=== PATIENT | male | born 2000 | race African-American/Black ===

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

== ENCOUNTER 2018-04-07 02:16 | Emergency (ER) | payer OTHER ==
--- NOTE | 2018-04-07 02:47 | ER Document Report ---
ED General - General Chief Complaint: Abdominal Injury Stated Complaint: ABDOMINAL PAIN Time Seen by Provider: 04/07/18 02:38 Notes: Patient is a pleasant 17-year-old male who presents with complaint of abdominal pain. Said dull pain started about 2 days ago. He says it went away and then came back. He says it is somewhat intermittent but has become more constant throughout the night tonight. No fevers. No vomiting. No diarrhea. Last bowel movement was yesterday and was normal. He says the pain is somewhat diffuse. He denies any blood in stool. He denies any history of abdominal surgeries. The only medications he takes are for mental health. He has no other chronic medical problems. TRAVEL OUTSIDE OF THE [place] IN LAST 30 DAYS: No - Related Data Allergies/Adverse Reactions: No Known Allergies Allergy (Verified 05/26/17 22:12) Past Medical History - Social History Smoking Status: Never Smoker Frequency of alcohol use: None Drug Abuse: None Family History: Reviewed & Not Pertinent Renal/ Medical History: Denies: Hx Peritoneal Dialysis Psychiatric Medical History: Reports: Hx Attention Deficit Hyperactivity Disorder - Immunizations Immunizations up to date: Yes Hx Diphtheria, Pertussis, Tetanus Vaccination: Yes Review of Systems - Review of Systems Notes: My Normal Review Basic REVIEW OF SYSTEMS: CONSTITUTIONAL : Denies fever, chills, or sweats. Denies recent illness. EENT: Denies eye, ear, throat, or mouth pain or symptoms. Denies nasal or sinus congestion. RESPIRATORY: Denies cough, cold, or chest congestion. Denies shortness of breath, difficulty breathing, or wheezing. GASTROINTESTINAL: Diffuse intermittent abdominal pain. Denies nausea, vomiting , or diarrhea. Denies constipation. Last BM: Sunday GENITOURINARY: Denies difficulty urinating, painful urination, burning, frequency, or blood in urine. MUSCULOSKELETAL: Denies neck or back pain or joint pain or swelling. SKIN: Denies rash or skin lesions. NEUROLOGICAL: Denies altered mental status or loss of consciousness. Denies headache. Denies weakness or paralysis or loss of use of either side. Denies problems with gait or speech. Denies sensory or motor loss. ALL OTHER SYSTEMS REVIEWED AND NEGATIVE. Physical Exam - Vital signs Vitals: Temp Pulse Resp BP Pulse Ox 97.9 F 66 18 132/76 H 100 04/07/18 02:27 04/07/18 02:27 04/07/18 02:27 04/07/18 02:27 04/07/18 02:27 - Notes Notes: General Appearance: Well nourished, alert, cooperative, no acute distress, mild obvious discomfort. Vitals: reviewed, See vital signs table. Head: no swelling or tenderness to the head Eyes: PERRL, EOMI, Conjuctiva clear Mouth: No decreasd moisture Lungs: No wheezing, No rales, No rhonci, No accessory muscle use, good air exchange bilaterally. Heart: Normal rate, Regular rythm, No murmur, no rub Abdomen: Normal BS, soft, No rigidity, patient has been palpation throughout entire abdomen but is worse over the right side. Seems worse between the right upper and lower quadrant. Extremities: strength 5/5 in all extremities, good pulses in all extremities, no swelling or tenderness in the extremities, no edema. Skin: warm, dry, appropriate color, no rash Neuro: speech clear, oriented x 3, normal affect, responds appropriately to questions. Course - Re-evaluation Re-evalutation: 04/07/18 06:37 Patient is a leukocytosis. He has had pain for over 2 days now. I do not suspect appendicitis. On repeat abdominal exam he does not have a significant pain in the right lower quadrant. He has more just some mild soreness of his abdomen. He complains of his abdominal abdomen at times been bloated and gassy feeling. I do think this most likely is related constipation. He does have a lot of stool on his abdominal x-ray. I will place him on MiraLAX. I informed him and his family that even though I think it is unlikely appendicitis at this time but they still may have a low threshold to return to ER immediately if he has focal right lower quadrant tenderness, vomiting, fevers, or feels unwell. I informed him that he should still return to the ER 24 hours for recheck if he still having the same amount of pain after 24 hours. Patient and family agree with plan and patient will be discharged home. Dictation of this chart was performed using voice recognition software; therefore, there may be some unintended grammatical errors. - Vital Signs Vital signs: Temp Pulse Resp BP Pulse Ox 98.0 F 68 18 128/72 H 100 04/07/18 04:35 04/07/18 04:35 04/07/18 04:35 04/07/18 04:35 04/07/18 04:35 - Laboratory Result Diagrams: 04/07/18 03:00 04/07/18 03:00 Laboratory results interpreted by me: 04/07/18 04/07/18 03:00 03:00 Lymphocytes % 45.2 H Sodium 145.5 H Potassium 5.1 H Discharge - Discharge Clinical Impression: Abdominal pain Qualifiers: Abdominal location: generalized Qualified Code(s): R10.84 - Generalized abdominal pain Condition: Good Disposition: HOME, SELF-CARE Additional Instructions: The exact cause of your abdominal pain is not 100% clear. I suspect your pain could be related to constipation so we have given you Miralax. Please take this as prescribed. If you are still having significant pain 24 hours later you should return to the ER for reevaluation. Please return to the ER immediately if you have fevers, vomiting, worsening abdominal pain, or pain focal over the right lower portion of your abdomen. Prescriptions: Polyethylene Glycol 3350 [Miralax] 1 cap PO DAILY #527 powder
[2018-04-07 03:21] LABS: ABSOLUTE EOSINOPHILS # (AUTO) 0.2 10^3/uL (0.0-0.6); ABSOLUTE LYMPHOCYTES (AUTO) 2.7 10^3/uL (0.5-4.7); ABSOLUTE MONOCYTES (AUTO) 0.5 10^3/uL (0.1-1.4); ABSOLUTE NEUT (AUTO) 2.5 10^3/uL (1.7-8.2); BASOPHILS % (AUTO) 0.6 % (0-2); EOSINOPHILS % (AUTO) 2.9 % (0-6); HEMATOCRIT 41.9 % (37.9-51.0); HEMOGLOBIN 14.3 g/dL (13.5-17.0); LYMPHOCYTES % (AUTO) 45.2 % (13-45); MEAN CORPUSCULAR HEMOGLOBIN 28.1 pg (27.0-33.4); MEAN CORPUSCULAR HGB CONC 34.2 g/dL (32.0-36.0); MEAN CORPUSCULAR VOLUME 82 fl (80-97); MONOCYTES % (AUTO) 8.7 % (3-13); PLATELET COUNT 230 10^3/uL (150-450); RED CELL DISTRIBUTION WIDTH 13.4 % (11.5-14.0); SEGMENTED NEUTROPHILS % (AUTO) 42.6 % (42-78); TOTAL CELLS COUNTED % (AUTO) 100 %; WHITE BLOOD COUNT 5.9 10^3/uL (4.0-10.5)
[2018-04-07 03:37] LABS: APPEARANCE,URINE CLEAR; BILIRUBIN,URINE NEGATIVE (NEGATIVE); COLOR,URINE YELLOW; GLUCOSE, URINE NEGATIVE (NEGATIVE); KETONES,URINE NEGATIVE (NEGATIVE); LEUKOCYTE ESTERASE,URINE NEGATIVE (NEGATIVE); NITRITE,URINE NEGATIVE (NEGATIVE); PROTEIN,URINE NEGATIVE (NEGATIVE); URINE SPECIFIC GRAVITY 1.023; UROBILINOGEN,URINE NEGATIVE mg/dL (<2.0)
[2018-04-07 03:39] LABS: ALANINE AMINOTRANSFERASE 27 U/L (10-40); ALBUMIN 4.7 g/dL (3.7-5.6); ALKALINE PHOSPHATASE 82 U/L (65-260); ANION GAP 13 (5-19); ASPARTATE AMINO TRANSFERASE 27 U/L (10-45); BILIRUBIN,DIRECT 0.3 mg/dL (0.0-0.4); BILIRUBIN,TOTAL 0.4 mg/dL (0.2-1.3); BLOOD UREA NITROGEN 16 mg/dL (7-20); CALCIUM 9.9 mg/dL (8.4-10.2); CARBON DIOXIDE 29 mmol/L (22-30); CHLORIDE 104 mmol/L (98-107); GLUCOSE 89 mg/dL (75-110); LIPASE 75.5 U/L (23-300); POTASSIUM 5.1 mmol/L (3.6-5.0); SODIUM 145.5 mmol/L (137-145); TOTAL PROTEIN 7.6 g/dL (6.3-8.2)
--- NOTE | 2018-04-07 04:11 | RADIOLOGY REPORT (SQ) ---
EXAM DESCRIPTION: Abdomen radiographs April 07, 2018 CLINICAL HISTORY: 17 years, Male, abdominal pain COMPARISON: None. TECHNIQUE: Supine and upright views of the abdomen FINDINGS: The bowel gas pattern is normal. There is no evidence of free air. There are no abnormal masses or calcifications. Limited evaluation of the liver, spleen, and kidneys demonstrate no gross abnormalities. The osseous structures are age appropriate. IMPRESSION: No acute intra-abdominal process.
[2018-04-07] MEDS ORDERED: POLYETHYLENE GLYCOL 3350 POWDER 17 GM/1 PACKET PO ONE (04:22)
[2018-04-07 04:35] VITALS: BP 128/72
== END 2018-04-07 04:35 | disposition home or self-care (01) ==
LOC: ER 02:16
DX: R10.84 Generalized abdominal pain (principal)
CPT/HCPCS: 99284; 36415; 83690; 85025; 80053; 81001; 74019; J3490

== ENCOUNTER 2018-08-13 06:39 | Emergency (ER) | payer OTHER ==
--- NOTE | 2018-08-13 07:48 | ER Document Report ---
HPI - HPI Pain Level: 1 Notes: Patient is a 17-year-old male with no significant past medical history who presents to the ED complaining of right hand MCP joint pain of the third digit along with some pain to the left fifth digit of the hand at his PIP joint status post injury 2 days ago. Patient states that he fell on his hands. Patient states that he has had fractures in the past of both hands. Denies drug allergies. The pain does not radiate. He has noted some swelling to the right, but not to the left. Denies any headache, fever, head injury, neck pain , URI, sore throat, chest pain, palpitations, syncope, cough, shortness of breath, wheeze, dyspnea, abdominal pain, nausea/vomiting/diarrhea, urinary retention, dysuria, hematuria, numbness/tingling, muscle paralysis/weakness, or rash. - ROS Systems Reviewed and Negative: Yes All other systems reviewed and negative Past Medical History - Social History Smoking Status: Current Every Day Smoker Drug Abuse: None Family History: Reviewed & Not Pertinent Patient has suicidal ideation: No Patient has homicidal ideation: No Renal/ Medical History: Denies: Hx Peritoneal Dialysis Psychiatric Medical History: Reports: Hx Attention Deficit Hyperactivity Disorder - Immunizations Immunizations up to date: Yes Hx Diphtheria, Pertussis, Tetanus Vaccination: Yes Vertical Provider Document - CONSTITUTIONAL Agree With Documented VS: Yes Notes: PHYSICAL EXAMINATION: GENERAL: Well-appearing, well-nourished and in no acute distress. LUNGS: Breath sounds clear to auscultation bilaterally and equal. No wheezes rales or rhonchi. HEART: Regular rate and rhythm without murmurs, rubs, gallops. Musculoskeletal: Hands b/l: FROM to passive/active. Strength 5+/5. N/V intact distal. + mild tenderness to the PIP left 5th digit w/o deformity, swelling, ecchymosis, or erythema. + tenderness to the rt 3rd MCP joint with noted mild swelling/abrasion. Extremities: No cyanosis, clubbing, or edema b/l. Peripheral pulses 2+. Capillary refill less than 3 seconds. NEUROLOGICAL: Normal speech, normal gait. Normal sensory, motor exams PSYCH: Normal mood, normal affect. SKIN: see above. - INFECTION CONTROL TRAVEL OUTSIDE OF THE [place] IN LAST 30 DAYS: No Course - Re-evaluation Re-evalutation: 08/13/18 08:37 Patient is an afebrile, well-hydrated, 17-year-old male who presents to the ED with left 5th digit and rt MCP 3rd digit hand pain, suspect benign. Vitals are acceptable without any significant tachycardia, tachypnea, or hypoxia. PE is otherwise unremarkable for any neurovascular compromise, obvious tendon/ ligament rupture, obvious fracture/dislocation, septic joint. X-ray's unremarkable for any acute pathology. Patient declined any Tylenol or ice. Patient is nontoxic-appearing. No other labs or imaging warranted at this time based on H&P. Conservative measures otherwise for symptoms. Recheck with your PCM in 3-5 days. Consider consult orthopedics. Return to the ED with any worsening/concerning symptoms otherwise as reviewed in discharge. Patient is in agreement. - Vital Signs Vital signs: Temp Pulse Resp BP Pulse Ox 97.5 F 84 20 138/66 H 98 08/13/18 06:43 08/13/18 06:43 08/13/18 06:43 08/13/18 06:43 08/13/18 06:43 Discharge - Discharge Clinical Impression: Bilateral hand pain Condition: Stable Disposition: HOME, SELF-CARE Additional Instructions: Rest, Ice, Compression, Elevation Tylenol/ibuprofen as needed Light stretches daily Strength exercises as able Moist heat and massage may help F/u with your PCP in 3-5 days for a recheck Consider consult(s) with Orthopedics/physical therapy for ongoing/worsening symptoms Return to the ED with any worsening symptoms and/or development of fever, headache, chest pain, palpitations, syncope, shortness of breath, trouble breathing, abdominal pain, n/v/d, muscle weakness/paralysis, numbness/tingling, swelling, redness, or other worsening symptoms that are concerning to you. Forms: Elevated Blood Pressure, Smoking Cessation Education, Return to Work Referrals: [facility] ([place] [Provider Group] - Follow up as needed
--- NOTE | 2018-08-13 08:17 | RADIOLOGY REPORT (SQ) ---
EXAM DESCRIPTION: HAND BILATERAL 3 VIEWS COMPLETED DATE/TIME: 08/13/2018 7:29 am REASON FOR STUDY: injury fell on both hands, caught herself with bilateral hand pain COMPARISON: None. EXAM PARAMETERS: NUMBER OF VIEWS: Three views. TECHNIQUE: AP, lateral and oblique radiographic images acquired of the right and left hand. LIMITATIONS: None. FINDINGS: MINERALIZATION: Normal. BONES: No acute fracture or dislocation. No worrisome bone lesions. JOINTS: No effusions. SOFT TISSUES: No soft tissue swelling. No foreign body. OTHER: No other significant finding. IMPRESSION: NEGATIVE STUDY OF THE RIGHT AND LEFT HANDS. NO RADIOGRAPHIC EVIDENCE OF ACUTE INJURY. TECHNICAL DOCUMENTATION: JOB ID: [id number] [employer]- All Rights Reserved Reading location - IP/workstation name: [email or web address]
[2018-08-13 09:06] VITALS: BP 125/71
== END 2018-08-13 09:06 | disposition home or self-care (01) ==
LOC: ER 06:39
DX: S60.511A Abrasion of right hand, initial encounter (principal); M25.541 Pain in joints of right hand; M79.645 Pain in left finger(s); W19.XXXA Unspecified fall, initial encounter; F17.200 Nicotine dependence, unspecified, uncomplicated
CPT/HCPCS: 99283

== ENCOUNTER 2018-08-18 14:29 | Emergency (ER) | payer OTHER ==
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
[2018-08-18] MEDS ORDERED: DIPH/PERTUSS(ACELL)/TETANUS VAC/PF 0.5 ML SYR (>=10YO) IM ONE (17:51)
[2018-08-18 18:02] VITALS: BP 128/74
== END 2018-08-18 18:05 | disposition home or self-care (01) ==
LOC: ER 14:29
DX: S06.0X1A Concussion with loss of consciousness of 30 minutes or less, initial encounter (principal); S90.512A Abrasion, left ankle, initial encounter; S40.212A Abrasion of left shoulder, initial encounter; S40.211A Abrasion of right shoulder, initial encounter; V03.90XA Pedestrian on foot injured in collision with car, pick-up truck or van, unspecified whether traffic or nontraffic accident, initial encounter
CPT/HCPCS: 70450; 74022; 90471; 90715; 99284

== ENCOUNTER 2018-09-02 23:24 | Emergency (ER) | payer OTHER ==
[2018-09-03 01:33] LABS: ABSOLUTE EOSINOPHILS # (AUTO) 0.1 10^3/uL (0.0-0.6); ABSOLUTE LYMPHOCYTES (AUTO) 2.7 10^3/uL (0.5-4.7); ABSOLUTE MONOCYTES (AUTO) 0.4 10^3/uL (0.1-1.4); ABSOLUTE NEUT (AUTO) 3.1 10^3/uL (1.7-8.2); BASOPHILS % (AUTO) 0.7 % (0-2); EOSINOPHILS % (AUTO) 1.1 % (0-6); HEMATOCRIT 41.1 % (37.9-51.0); HEMOGLOBIN 13.8 g/dL (13.5-17.0); LYMPHOCYTES % (AUTO) 42.5 % (13-45); MEAN CORPUSCULAR HEMOGLOBIN 27.7 pg (27.0-33.4); MEAN CORPUSCULAR HGB CONC 33.5 g/dL (32.0-36.0); MEAN CORPUSCULAR VOLUME 83 fl (80-97); MONOCYTES % (AUTO) 6.8 % (3-13); PLATELET COUNT 188 10^3/uL (150-450); RED BLOOD COUNT 4.97 10^6/uL (4.35-5.55); RED CELL DISTRIBUTION WIDTH 12.9 % (11.5-14.0); SEGMENTED NEUTROPHILS % (AUTO) 48.9 % (42-78); TOTAL CELLS COUNTED % (AUTO) 100 %; WHITE BLOOD COUNT 6.3 10^3/uL (4.0-10.5)
--- NOTE | 2018-09-03 02:09 | ER Document Report ---
ED Psych Disorder / Suicide - General Chief Complaint: Psych Problem Stated Complaint: IVC EVALUATION Time Seen by Provider: 09/03/18 00:57 Mode of Arrival: Ambulatory Information source: Patient Notes: Patient is a 17-year-old male with history of schizophrenia, currently being treated although the patient is noncompliant, who presents involuntarily committed by his mother. Involuntary commitment paperwork states the patient began to voice suicidal ideation with a plan to either cut himself or take a lot of pills, he also was reportedly voicing homicidal ideation and having aggressive behavior toward other people. Patient denies all this and reports that his problems are due to issues with his mother. He currently denies suicidal/homicidal ideation, audiovisual hallucinations, or depressive thoughts. He also denies alcohol or drug use. TRAVEL OUTSIDE OF THE [place] IN LAST 30 DAYS: No - HPI Patient complains to provider of: Other - Feeling stressed out. No: Bizarre behavior, Hallucinating, Homicidal ideation, Homicidal plan, Homicidal attempt, Overdose, Suicidal ideation, Suicidal plan, Suicidal attempt Onset: Other - Two weeks Onset was: Cannot confirm Quality of pain: No pain Severity: None Pain Level: Denies Suicide Risk Factors: Depressed, Frightened friends/family, Male, Other mental health dx. 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 Denies: Hx Peritoneal Dialysis Malignancy Medical History: Reports None GI Medical History: Reports: None Musculoskeletal Medical History: Reports None Skin Medical History: Reports None Psychiatric Medical History: Reports: Hx Attention Deficit Hyperactivity Disorder, Hx Depression - anxiety, Hx Schizophrenia Traumatic Medical History: Reports: None Infectious Medical History: Reports: None Past Surgical History: Reports: None - Immunizations Immunizations up to date: Yes Hx Diphtheria, Pertussis, Tetanus Vaccination: Yes Review of Systems - Review of Systems -: Yes ROS unobtainable due to patient's medical condition Constitutional: No symptoms reported EENT: No symptoms reported Cardiovascular: No symptoms reported Respiratory: No symptoms reported Gastrointestinal: No symptoms reported Genitourinary: No symptoms reported Male Genitourinary: No symptoms reported Musculoskeletal: No symptoms reported Skin: No symptoms reported Hematologic/Lymphatic: No symptoms reported Neurological/Psychological: Depression, Anxiety. denies: Hallucinations, Homicidal ideation, Suicidal ideation -: Yes All other systems reviewed and negative Physical Exam - Vital signs Vitals: Temp Pulse Resp BP Pulse Ox 98.4 F 73 20 115/73 97 09/02/18 23:52 09/02/18 23:52 09/02/18 23:52 09/02/18 23:52 09/02/18 23:52 Interpretation: Normal - General General appearance: Appears well, Alert In distress: None - HEENT Head: Normocephalic, Atraumatic Eyes: Normal Pupils: PERRL - Respiratory Respiratory status: No respiratory distress Chest status: Nontender Breath sounds: Normal Chest palpation: Normal - Cardiovascular Rhythm: Regular Heart sounds: Normal auscultation Murmur: No - Abdominal Inspection: Normal Distension: No distension Bowel sounds: Normal Tenderness: Nontender Organomegaly: No organomegaly - Back Back: Normal, Nontender - Extremities General upper extremity: Normal inspection, Nontender, Normal color, Normal ROM , Normal temperature General lower extremity: Normal inspection, Nontender, Normal color, Normal ROM , Normal temperature, Normal weight bearing. No: Malvin's sign - Neurological Neuro grossly intact: Yes Cognition: Normal Orientation: AAOx4 Ronaldo Coma Scale Eye Opening: Spontaneous Ronaldo Coma Scale Verbal: Oriented Ronaldo Coma Scale Motor: Obeys Commands Ronaldo Coma Scale Total: 15 Speech: Normal Motor strength normal: LUE, RUE, LLE, RLE Sensory: Normal - Psychological Associated symptoms: Normal affect, Normal mood. No: Aggressive, Agitated, Auditory hallucinations, Visual hallucinations - Skin Skin Temperature: Warm Skin Moisture: Dry Skin Color: Normal Course - Re-evaluation Re-evalutation: 09/03/18 02:14 After medical clearance, will attempt to contact the patient's mother for collateral information before determining whether or not to uphold involuntary commitment. 09/03/18 03:39 Two attempts were made to contact the patient's mother at both the number provided by the patient and number according to the demographics; I was unable to speak with the mother to obtain collateral information. Plan will be to maintain involuntary commitment papers and await psychiatric consult tomorrow. - Vital Signs Vital signs: Temp Pulse Resp BP Pulse Ox 98.4 F 73 20 115/73 97 09/02/18 23:52 09/02/18 23:52 09/02/18 23:52 09/02/18 23:52 09/02/18 23:52 - Laboratory Result Diagrams: 09/03/18 00:21 09/03/18 00:21 Laboratory results interpreted by me: 09/03/18 00:21 Salicylates < 1.0 L Acetaminophen < 10 L - EKG Interpretation by Ok EKG shows normal: Sinus rhythm Rate: Normal Rhythm: NSR Corn/QRS: No: LBBB When compared to previous EKG there are: No significant change Discharge - Discharge Clinical Impression: Suicidal behavior without attempted self-injury Condition: Good
[2018-09-03 02:23] LABS: BLOOD UREA NITROGEN 15 mg/dL (7-20); CALCIUM 9.4 mg/dL (8.4-10.2); GLUCOSE 93 mg/dL (75-110); POTASSIUM 3.8 mmol/L (3.6-5.0)
[2018-09-03 02:24] LABS: ALANINE AMINOTRANSFERASE 12 U/L (10-40); ALBUMIN 4.5 g/dL (3.7-5.6); ALKALINE PHOSPHATASE 65 U/L (65-260); ANION GAP 13 (5-19); ASPARTATE AMINO TRANSFERASE 22 U/L (10-45); BILIRUBIN,DIRECT 0.3 mg/dL (0.0-0.4); BILIRUBIN,TOTAL 1.1 mg/dL (0.2-1.3); CARBON DIOXIDE 26 mmol/L (22-30); CHLORIDE 104 mmol/L (98-107); TOTAL PROTEIN 7.3 g/dL (6.3-8.2)
[2018-09-03 02:25] LABS: ACETAMINOPHEN < 10 ug/mL (10-30); ALCOHOL < 10 mg/dL (NONE DETECTED); SALICYLATE < 1.0 mg/dL (2.0-20.0)
[2018-09-03 08:11] LABS: APPEARANCE,URINE SLIGHTLY-CLOUDY; BILIRUBIN,URINE NEGATIVE (NEGATIVE); COLOR,URINE YELLOW; GLUCOSE, URINE NEGATIVE (NEGATIVE); KETONES,URINE TRACE mg/dL (NEGATIVE); LEUKOCYTE ESTERASE,URINE TRACE (NEGATIVE); NITRITE,URINE NEGATIVE (NEGATIVE); PROTEIN,URINE 30 mg/dL (NEGATIVE); URINE SPECIFIC GRAVITY 1.031
[2018-09-03 08:25] LABS: URINE AMPHETAMINES SCREEN NEGATIVE; URINE BARBITURATES SCREEN NEGATIVE; URINE BENZODIAZEPINES SCREEN NEGATIVE; URINE COCAINE SCREEN NEGATIVE; URINE MARIJUANA (THC) SCREEN UNCONFIRMED POSITIVE; URINE METHADONE SCREEN NEGATIVE; URINE PHENCYCLIDINE SCREEN NEGATIVE
--- NOTE | 2018-09-03 09:48 | ER Document Report ---
Doctor's Note Notes: Patient seen and evaluated by myself. No issues overnight as per nursing. Patient has no complaints currently. His vital signs are stable. Medically cleared. Patient denies any suicidal ideations, homicidal ideations, psychosis. IVC paperwork was filled out by mom. We are currently trying to contact mom to discuss patient with her. Behavioral health evaluated patient. No reason for inpatient placement. Will continue to try to contact mom. Discharge later today. 09/03/18 09:44 Discharge - Discharge Clinical Impression: Family discord Condition: Good Disposition: HOME, SELF-CARE Additional Instructions: You have been evaluated both medical and behavioral health teams and been deemed appropriate for discharge. You are highly encouraged to obtain therapeutic services to build coping skills. You have provided a local resource list which includes the mobile crisis contact information. Please make an appointment in 3-5 days for your chosen outpatient mental health provider. AT ANY TIME, IF YOUR SYMPTOMS CHANGE SIGNIFICANTLY OR WORSEN OR YOU DEVELOP NEW SYMPTOMS, RETURN TO THE EMERGENCY DEPARTMENT IMMEDIATELY FOR RE-EVALUATION. Referrals: [facility] [Outside] - Follow up in 3-5 days [facility] [Outside] - Follow up as needed
--- NOTE | 2018-09-03 09:55 | PSYCHOLOGICAL NOTE ---
Psych Note - Psych Note Date seen by psych provider: 09/03/18 Time seen by psych provider: 07:45 Psych Note: Reason for Consult: IVC Consent permissions: Mukesh [phone] father Brito, Patient is a 17-year-old male with history of Unspecified Bipolar Disorder; currently being treated although the patient is noncompliant, who presents involuntarily committed by his mother. Patient reports that he arrived [facility] [place] [facility] [place] [place] states that his mom took IVC paperwork on him because "she thought I was going to hurt myself." He reports that he has had a terrible childhood with significant family discord between him and his mother. He reports that "my mom thinks I hate her." He openly describes his frustration in his relationship with his mom on how he feels that he does not have a " mental issue" but rather a relationship issue with his mother. He reports that sometimes he does feel helpless however denies thoughts of wanting to harm himself. He disclosed that when he does get upset he tends to act out in anger ; however, he states that his mother exaggerates his behaviors and reports that she is "scared of me." He reports that he has been in and out of psychiatric hospitals and taking medications most of his life which is never improved which supports his thoughts on it not being a mental health concern but rather anger that his mom just continually tries to get rid of him. He states that he never had issues with seeing or hearing things until he started taking some medications. He reports that his mom and him just need to talk but seems as if it is a loss because; "if I felt she did not want me as a kid how my supposed to feel now when she is constantly still trying to get rid of me." He discloses that his mother did make him an appointment for outpatient mental health therapy and feels that it be beneficial for both him to go up however admits that having someone to talk to could not hurt. He reports he also started to journal and attempt to deal with the release of his emotions. Clinician noted his forehead had a cut on it. When asked the patient smiled and stated that he was messing around throwing his "vape" up and down in the air catching it when he missed and hit him on the forehead. He states that he did move in with a family friend which is where he was sleeping when arrived to bring him here. Clinician attempted to contact patient's mother; left message Clinician attempted to contact family friend,Mukesh; left message Clinician attempted to contact patient's father; left message Clinician contacted patient's homicide squad commanding officer, Officer Óscar, at [phone] as the patient's ankle bracelet was dying and patient became very concerned that he be in trouble; left message Patient is currently on probation for possession of controlled substance, distribution to a delinquency of a minor, and larceny. Patient is alert and orientated to person, place, time and circumstance. Mood is euthymic with congruent affect. Patient does openly engaged with clinician and discusses his frustration with his identified dysfunctional relationship with his mother. Patient denies suicidal and homicidal ideations. Delusions are absent behaviors congruent with an intact reality based presentation i.e. organized and linear thought process. Eye contact was well-maintained. Conversational speech is within normal rate, tone and prosody. Intellectual abilities appear to be within the average range. Attention and concentration were good. Insight, judgment, impulse control are currently good. no medication recommendations at this time Unspecified Bipolar and Related Disorder, per history Impression/Plan: Patient is recommended for rescind of IVC and is cleared from acute psychiatric services. Patient refuses medications but reports would willingly go to therapy. He admits that he acts out in anger at times but denies thoughts of wanting to harm himself or others. Patient is not demonstrating any behaviours indicating he is responding to internal stimuli ( ie organized and linear conversations, good eye contact and normal conversation speech). Patient does not meet IVC criteria per [place] GS 122C. Patient is recommended to follow up with outpatient mental health services and was provided mobile crisis contact information. Dr. Spangler was consult on the care and management of this patient;attending physician is in agreement with recommendations and disposition.
[2018-09-03 10:38] VITALS: BP 106/70
--- NOTE | 2018-09-03 11:26 | EKG REPORT ---
SEVERITY:- ABNORMAL ECG - SINUS RHYTHM ST ELEVATION SUGGESTS PERICARDITIS : Confirmed by: Alycia Sharpe 03-Sep-2018 11:26:07
== END 2018-09-03 10:25 | disposition home or self-care (01) ==
LOC: ER 23:24
DX: F20.9 Schizophrenia, unspecified (principal); Z63.9 Problem related to primary support group, unspecified; R45.851 Suicidal ideations; R45.850 Homicidal ideations; Z91.19 Patient's noncompliance with other medical treatment and regimen
CPT/HCPCS: 36415; 80053; 80307; 81001; 85025; 93005; 93010; 99285

== ENCOUNTER 2019-11-26 15:31 | Emergency (ER) | payer OTHER ==
[2019-11-26 16:36] VITALS: BP 134/79
--- NOTE | 2019-11-26 16:49 | ER Document Report ---
ED Flu Like - General Chief Complaint: Cold Symptoms Stated Complaint: COLD SYMPTOMS Time Seen by Provider: 11/26/19 16:43 Mode of Arrival: Ambulatory Information source: Patient Notes: 19-year-old male presented to ED for ED for cough cold flu symptoms with headache for about 2 weeks. He states he started out with runny nose congestion and a cough now he still has a dry cough. TRAVEL OUTSIDE OF THE [place] IN LAST 30 DAYS: No - Related Data Allergies/Adverse Reactions: No Known Allergies Allergy (Verified 11/26/19 16:43) Past Medical History - Social History Smoking Status: Current Every Day Smoker Frequency of alcohol use: None - Vapor cigarette Drug Abuse: None Lives with: Family Family History: Reviewed & Not Pertinent Patient has suicidal ideation: No - Medical History Medical History: Negative - Past Medical History Cardiac Medical History: Reports: None Pulmonary Medical History: Reports: None EENT Medical History: Reports: None Neurological Medical History: Reports: None Endocrine Medical History: Reports: None Renal/ Medical History: Reports: None Malignancy Medical History: Reports None GI Medical History: Reports: None Musculoskeletal Medical History: Reports Hx Musculoskeletal Trauma Skin Medical History: Reports None Psychiatric Medical History: Reports: Hx Anxiety, Hx Attention Deficit Hyperactivity Disorder, Hx Bipolar Disorder, Hx Depression, Hx Schizophrenia Traumatic Medical History: Reports: None Infectious Medical History: Reports: None Surgical Hx: Negative Past Surgical History: Reports: None - Immunizations Immunizations up to date: Yes Hx Diphtheria, Pertussis, Tetanus Vaccination: Yes - 2016 History of Pneumococcal Vaccine: No History of Influenza Vaccine for 07/2019 - 11/2019 Season: No Review of Systems - Review of Systems Constitutional: No symptoms reported EENT: Nose discharge, Sinus discharge Cardiovascular: No symptoms reported Respiratory: Cough Gastrointestinal: No symptoms reported Genitourinary: No symptoms reported Male Genitourinary: No symptoms reported Musculoskeletal: No symptoms reported Skin: No symptoms reported Hematologic/Lymphatic: No symptoms reported Neurological/Psychological: No symptoms reported -: Yes All other systems reviewed and negative Physical Exam - Vital signs Vitals: Temp Pulse Resp BP Pulse Ox 98.5 F 77 17 134/79 H 100 11/26/19 16:34 11/26/19 16:34 11/26/19 16:34 11/26/19 16:34 11/26/19 16:34 Interpretation: Normal - General General appearance: Appears well, Alert - HEENT Head: Normocephalic, Atraumatic Eyes: Normal Pupils: PERRL Ears: Normal External canal: Normal Tympanic membrane: Normal Sinus: Normal Nasal: Purulent discharge, Swelling Mouth/Lips: Normal Mucous membranes: Normal Pharynx: Retropharyngeal abscess Neck: Normal - Respiratory Respiratory status: No respiratory distress Chest status: Nontender Breath sounds: Nonproductive cough Chest palpation: Normal - Cardiovascular Rhythm: Regular Heart sounds: Normal auscultation Murmur: No - Abdominal Inspection: Normal Distension: No distension Bowel sounds: Normal Tenderness: Nontender Organomegaly: No organomegaly - Back Back: Normal, Nontender - Extremities General upper extremity: Normal inspection, Nontender, Normal color, Normal ROM, Normal temperature General lower extremity: Normal inspection, Nontender, Normal color, Normal ROM, Normal temperature, Normal weight bearing. No: Malvin's sign - Neurological Neuro grossly intact: Yes Cognition: Normal Orientation: AAOx4 Ronaldo Coma Scale Eye Opening: Spontaneous Ronaldo Coma Scale Verbal: Oriented Ronaldo Coma Scale Motor: Obeys Commands Ronaldo Coma Scale Total: 15 Speech: Normal Motor strength normal: LUE, RUE, LLE, RLE Sensory: Normal - Psychological Associated symptoms: Normal affect, Normal mood - Skin Skin Temperature: Warm Skin Moisture: Dry Skin Color: Normal Course - Re-evaluation Re-evalutation: 11/26/19 16:53 After performing a Medical Screening Examination, I estimate there is LOW risk for ACUTE CORONARY SYNDROME, RESPIRATORY FAILURE, SEPSIS OR MENINGITIS, thus I consider the discharge disposition reasonable. I have reevaluated this patient multiple times and no significant life threatening changes are noted. The patient and I have discussed the diagnosis and risks, and we agree with discharging home with close follow-up. We also discussed returning to the Emergency Department immediately if new or worsening symptoms occur. We have discussed the symptoms which are most concerning (e.g., changing or worsening pain, trouble swallowing or breathing, neck stiffness, fever) that necessitate immediate return. - Vital Signs Vital signs: Temp Pulse Resp BP Pulse Ox 98.5 F 77 17 134/79 H 100 11/26/19 16:34 11/26/19 16:34 11/26/19 16:34 11/26/19 16:34 11/26/19 16:34 Discharge - Discharge Clinical Impression: URI (upper respiratory infection) Qualifiers: URI type: unspecified viral URI Qualified Code(s): J06.9 - Acute upper respiratory infection, unspecified Condition: Stable Disposition: HOME, SELF-CARE Additional Instructions: UPPER RESPIRATORY ILLNESS: You have a viral infection of the respiratory passages -- a "cold." This common infection causes nasal congestion, drainage, and often sore throat and cough. It is highly contagious. The disease usually lasts about 10 to 14 days. There is no "cure" for the viral infection -- it must run its course. If there is a complication, such as bacterial infection in the nose, sinuses, middle ear, or bronchial tubes, antibiotics may be required. The antibiotics won't affect the virus. Drink plenty of fluids. A humidifier may help. An expectorant medication or decongestant may make you more comfortable. Use acetaminophen or ibuprofen for fever or aches. See the doctor if fever persists over two days, if there is any significant worsening of your symptoms, or if you simply fail to improve as expected. You have been recommended treatment with use Flonase which is [id number] 1 spray each nostril twice a day. You could also use salt soda solution gargles. These will help to remove the drainage from the back your throat. Chloraseptic spray was [id number] that will also help with your sore throat. Salt and soda solution gargle 1 quart of water 1 tablespoon of salt 1 teaspoon of baking soda Mixed 3 ingredients together and boil for 1 minute Placed in a covered quart jar Use 1/2 ounce of cold solution to gargle 3 times a day USE OF ACETAMINOPHEN (Tylenol): Acetaminophen may be taken for pain relief or fever control. It's much safer than aspirin, offering a wider range of "safe" dosages. It is safe during . Some brand names are Tylenol, Panadol, Datril, Anacin 3, Tempra, and Liquiprin. Acetaminophen can be repeated every four hours. The following are maximum recommended dosages: >89 pounds or adults 650 mg to 900 mg Acetaminophen can be repeated every four hours. Maximum dose not to exceed 4000 mg a day. SMOKING: If you smoke, you should stop smoking. The tar and chemicals in cigarette smoke are harmful. Smoking has been shown to cause: emphysema chronic bronchitis lung cancer mouth and throat cancer stomach and pancreas cancer premature aging defects In addition, smoking increases ear and lung infections in children of smokers. FOLLOW-UP CARE: If you have been referred to a physician for follow-up care, call the physicians office for an appointment as you were instructed or within the next two days. If you experience worsening or a significant change in your symptoms, notify the physician immediately or return to the Emergency Department at any time for re-evaluation. Forms: Elevated Blood Pressure, Return to Work
== END 2019-11-26 16:55 | disposition home or self-care (01) ==
LOC: ER 15:31
DX: J06.9 Acute upper respiratory infection, unspecified (principal); R05 Cough; R09.89 Other specified symptoms and signs involving the circulatory and respiratory systems; R51 Headache; R09.81 Nasal congestion; F17.290 Nicotine dependence, other tobacco product, uncomplicated
CPT/HCPCS: 99283